=== PATIENT | female | born 1955 | race Caucasian/White ===

== ENCOUNTER 2019-10-25 11:47 | Inpatient (IN) ==
[2019-10-25] MEDS ORDERED: Naloxone 0.4 MG/ML INJ IVP PRN (15:28)
[2019-10-25] MEDS ORDERED: *HR* Labetalol 20 MG/4 ML SYRINGE IVP PRN (16:13)
[2019-10-25] MEDS ORDERED: Isovue-370 500 ML BOTTLE IVP ONE (16:49)
[2019-10-25] MEDS ORDERED: *HR* Dextrose 50 % in Water (Vial) 50 ML VIAL IVP PRN (17:42)
[2019-10-25] MEDS ORDERED: Dextrose Gel 15 GM/37.5 ML TUBE PO PRN ×2 (17:42)
[2019-10-25] MEDS ORDERED: D5% in Water 1,000 ML IVC PRN (17:42)
[2019-10-25 19:36] LABS: Bilirubin,Urine Negative (Negative); Blood,Urine Small (Negative); Clarity,Urine Clear (Clear); Color,Urine Colorless (Yellow); Glucose,Urine (UA) Normal (Normal); Ketones,Urine Negative (Negative); Leukocyte Esterase,Urine Moderate (Negative); Nitrite,Urine Negative (Negative); PH,Urine 6.5 pH Units (5.0-8.0); Protein,Urine Trace mg/dL (Neg-Trace); Specific Gravity,Urine 1.008 (1.010-1.025); Squamous Epithelial Cell,Urine Few per hpf (None-Few); Urobilinogen,Urine Normal (Normal)
[2019-10-25 19:58] LABS: Amphetamine Screen,Urine Negative ng/mL (Cutoff=1000); Barbiturate Screen,Urine Negative ng/mL (Cutoff=200); Benzodiazepines Screen,Urine Negative ng/mL (Cutoff=200); Cannabinoid Screen,Urine Negative ng/mL (Cutoff = 50); Cocaine Screen,Urine Negative ng/mL (Cutoff= 300); Opiate Screen,Urine Positive ng/mL (Cutoff=300); Phencyclidine Screen,Urine Negative ng/mL (Cutoff=25)
[2019-10-25] MEDS: Gabapentin 100 MG CAPSULE PO SCH (21:44)
[2019-10-25] MEDS: Apixaban 5 MG TABLET PO SCH (21:45)
[2019-10-25] MEDS: Insulin LISPRO 300 UNITS/3 ML VIAL SQ SCH (21:47)
[2019-10-26] MEDS: Ondansetron 4 MG/2 ML VIAL IVP PRN ×2 (01:22→14:28)
[2019-10-26] MEDS: *HR* Acetaminophen w/Cod 300-30 mg 1 TAB TABLET PO PRN ×3 (03:35→22:06)
[2019-10-26 06:10] LABS: Basophils # 0.1 K/mcL (0.0-0.2); Basophils % 0.5 %; Eosinophils # 0.3 K/mcL (0.0-0.6); Eosinophils % 2.4 %; Hemoglobin 11.6 g/dL (11.5-15.4); Immature Granulocytes % 0.3 % (0-4); Lymphocytes # 2.9 K/mcL (0.6-4.6); Lymphocytes % 23.1 %; Mean Corpuscular HGB Conc 30.5 g/dL (31.6-35.5); Mean Corpuscular Hemoglobin 24.6 pg (28.0-33.3); Mean Corpuscular Volume 80.7 fL (83.0-100.0); Monocytes # 0.7 K/mcL (0.0-1.3); Monocytes % 5.3 %; Neutrophils # 8.6 K/mcL (1.6-8.9); Platelet Count 321 K/mcL (140-400); Red Blood Count 4.71 M/mcL (3.82-4.97); Red Cell Distribution Width 17.2 % (11.5-14.5); Segmented Neutrophils % 68.4 %; White Blood Count 12.6 K/mcL (4.3-11.1)
[2019-10-26 06:53] LABS: BUN/Creatinine Ratio 12 (6-26); Blood Urea Nitrogen 10 mg/dL (8-23); Carbon Dioxide 25 mEq/L (23-29); Chloride 101 mEq/L (98-107); Chol/HDL Ratio 6.6 (0-4.9); Cholesterol 212 mg/dL (< 200); Glucose 146 mg/dL (70-105); HDL Cholesterol 32 mg/dL (40-59); LDL Cholesterol,Calculated 140 mg/dL (0-99); Magnesium 1.8 mg/dL (1.6-2.6); Osmolality,Calculated 286 (280-300); Potassium 3.3 mEq/L (3.5-5.1); Sodium 137 mEq/L (136-145); Triglycerides 199 mg/dL (< 150); eGFR For African Americans > 60 (> 60); eGFR For Non-African Americans > 60 (> 60)
[2019-10-26 06:57] LABS: Thyroid Stimulating Hormone 2.009 mcIU/mL (0.340-5.600)
[2019-10-26 07:08] LABS: Folate 3.6 ng/mL (3.0-16.0)
[2019-10-26] MEDS: Insulin LISPRO 300 UNITS/3 ML VIAL SQ SCH ×4 (08:13→22:11)
[2019-10-26] MEDS: Apixaban 5 MG TABLET PO SCH ×2 (08:18→22:05)
[2019-10-26 08:41] LABS: Estimated Average Glucose 169 mg/dl
[2019-10-26] MEDS: Aspirin Enteric Coated 81 MG Tablet PO SCH (10:08)
[2019-10-26] MEDS: Gabapentin 100 MG CAPSULE PO SCH (22:05)
[2019-10-26] MEDS: Melatonin 3 MG TABLET PO SCH (22:06)
[2019-10-27] MEDS ORDERED: *HR* Metoprolol 5 MG/5 ML VIAL IVP ONE (04:35)
[2019-10-27] MEDS: *HR* Acetaminophen w/Cod 300-30 mg 1 TAB TABLET PO PRN ×2 (04:46→22:31)
[2019-10-27 07:17] LABS: Basophils # 0.1 K/mcL (0.0-0.2); Basophils % 0.7 %; Eosinophils # 0.4 K/mcL (0.0-0.6); Eosinophils % 3.6 %; Hemoglobin 11.5 g/dL (11.5-15.4); Immature Granulocytes % 0.4 % (0-4); Lymphocytes # 2.8 K/mcL (0.6-4.6); Lymphocytes % 24.6 %; Mean Corpuscular HGB Conc 30.3 g/dL (31.6-35.5); Mean Corpuscular Hemoglobin 24.5 pg (28.0-33.3); Mean Corpuscular Volume 80.9 fL (83.0-100.0); Monocytes # 0.8 K/mcL (0.0-1.3); Monocytes % 7.4 %; Neutrophils # 7.2 K/mcL (1.6-8.9); Platelet Count 310 K/mcL (140-400); Red Cell Distribution Width 17.7 % (11.5-14.5); Segmented Neutrophils % 63.3 %; White Blood Count 11.4 K/mcL (4.3-11.1)
[2019-10-27] MEDS: Insulin LISPRO 300 UNITS/3 ML VIAL SQ SCH ×4 (07:41→20:19)
[2019-10-27 08:41] LABS: BUN/Creatinine Ratio 13 (6-26); Blood Urea Nitrogen 12 mg/dL (8-23); Carbon Dioxide 26 mEq/L (23-29); Chloride 105 mEq/L (98-107); Glucose 145 mg/dL (70-105); Osmolality,Calculated 292 (280-300); Potassium 3.8 mEq/L (3.5-5.1); Sodium 140 mEq/L (136-145); eGFR For African Americans > 60 (> 60); eGFR For Non-African Americans 58 (> 60)
[2019-10-27] MEDS: Apixaban 5 MG TABLET PO SCH ×2 (08:57→19:44)
[2019-10-27] MEDS: Aspirin Enteric Coated 81 MG Tablet PO SCH (08:58)
[2019-10-27] MEDS: Metoprolol 100 MG TABLET PO SCH ×2 (09:14→19:44)
[2019-10-27] MEDS: Ondansetron 4 MG/2 ML VIAL IVP PRN ×2 (11:35→19:37)
[2019-10-27] MEDS ORDERED: *HR* Labetalol 20 MG/4 ML SYRINGE IVP PRN (17:19)
[2019-10-27] MEDS: lisinopriL 20 MG TABLET PO SCH (17:46)
[2019-10-27] MEDS: Gabapentin 100 MG CAPSULE PO SCH (19:44)
[2019-10-27] MEDS: Melatonin 3 MG TABLET PO SCH (19:45)
[2019-10-28] MEDS: Ondansetron 4 MG/2 ML VIAL IVP PRN (06:15)
[2019-10-28] MEDS: *HR* Acetaminophen w/Cod 300-30 mg 1 TAB TABLET PO PRN (06:15)
[2019-10-28] MEDS: Apixaban 5 MG TABLET PO SCH (08:09)
[2019-10-28] MEDS: Metoprolol 100 MG TABLET PO SCH (08:09)
[2019-10-28] MEDS: lisinopriL 20 MG TABLET PO SCH (08:09)
[2019-10-28] MEDS: Aspirin Enteric Coated 81 MG Tablet PO SCH (08:09)
[2019-10-28] MEDS: Insulin LISPRO 300 UNITS/3 ML VIAL SQ SCH ×2 (08:09→12:12)
[2019-10-28 13:09] VITALS: BP 133/84
== END 2019-10-28 14:13 | disposition home or self-care (01) | DRG 65 ==
LOC: 3BNU → SUATTDRO 10-26 13:52
PROVIDERS: ADMIT Internal Medicine; ATTEND Internal Medicine